=== PATIENT | male | born 2000 | race Caucasian/White ===

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

== ENCOUNTER 2023-12-19 17:30 | Emergency (ER) | payer OTHER, SELFPAY ==
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
[2023-12-19 18:05] VITALS: BP 156/93; PULSE 94; RESP 19; TEMP 36.7; O2SAT 100
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
== END 2023-12-19 20:01 | disposition home or self-care (01) ==
LOC: ANHED 19:42
PROVIDERS: Emergency Provider Physician Assistant
DX: S16.1XXA Strain of muscle, fascia and tendon at neck level, initial encounter (principal); V49.40XA Driver injured in collision with unspecified motor vehicles in traffic accident, initial encounter
CPT/HCPCS: 70450; 72125; 99284